=== PATIENT | female | born 1985 | race Caucasian/White ===

== ENCOUNTER 2018-11-21 12:32 | Emergency (ER) | payer SELFPAY ==
[2018-11-21 13:30] VITALS: BP 98/61
--- NOTE | 2018-11-21 13:30 | UC ---
Skin Complaint HPI - HPI Summary HPI Summary: 33 yo female presents accompanied by with concerns for tick bites to right thigh. She tells me that she is visiting from [place] and the house they are staying at has had many people bitten by ticks. Today she noticed two very small red dots on her right thigh and couldn't remove them with tick twisters. She is concerned they are ticks. Not present more than a few hours today. No pain or itch. - History of Current Complaint Chief Complaint: UCSkin Time Seen by Provider: 11/21/18 13:30 Stated Complaint: TICK BITE Hx Obtained From: Patient Onset/Duration: Sudden Onset Current Severity: None Pain Intensity: 0 - Allergy/Home Medications Allergies/Adverse Reactions: Allergies Allergy/AdvReac Type Severity Reaction Status Date / Time Penicillins Allergy Rash Verified 11/21/18 13:31 Home Medications: Home Medications NK [No Home Medications Reported] 11/21/18 [History Confirmed 11/21/18] PMH/Surg Hx/FS Hx/Imm Hx - Additional Past Medical History Additional PMH: None - Surgical History Surgical History: None - Family History Known Family History: Positive: None - Social History Occupation: Employed Full-time Lives: With Family Alcohol Use: None Substance Use Type: None Smoking Status (MU): Never Smoked Tobacco Review of Systems All Other Systems Reviewed And Are Negative: Yes Constitutional: Positive: Negative Skin: Positive: Other - ?Tick bite right thigh Respiratory: Positive: Negative Cardiovascular: Positive: Negative Neurovascular: Positive: Negative Neurological: Positive: Negative Psychological: Positive: Negative Physical Exam - Summary Physical Exam Summary: GENERAL: NAD. WDWN. No pain distress. SKIN: RIGHT thigh: medial aspect with pinpoint vesicle that is bright red in color. NTTP, no surrounding erythema, no tick or insect present. Similar appearing lesion on RLQ abdomen. CHEST: No accessory muscle use. Breathing comfortably and in no distress. CV: Pulses intact. Cap refill <2seconds NEURO: Alert. PSYCH: Age appropriate behavior. Triage Information Reviewed: Yes Vital Signs: Initial Vital Signs Temp 98.6 F 11/21/18 13:28 Pulse 62 11/21/18 13:28 Resp 16 11/21/18 13:28 BP 98/61 11/21/18 13:28 Pulse Ox 100 11/21/18 13:28 Vital Signs Reviewed: Yes Course/Dx - Course Course Of Treatment: Blood blisters. Sterile tweezers were used to scratch the blisters and pin- point amount of blood was expressed. Lesions resolved. Band-aid applied. Pt tolerated well. - Diagnoses Provider Diagnosis: Blood blister Discharge - Sign-Out/Discharge Documenting (check all that apply): Patient Departure All imaging exams completed and their final reports reviewed: No Studies - Discharge Plan Condition: Stable Disposition: HOME Patient Education Materials: Lyme Disease (ED), Tick Bite (ED) Referrals: No Primary Care Phys,NOPCP [Primary Care Provider] - Additional Instructions: If you develop a fever, shortness of breath, chest pain, new or worsening symptoms - please call your PCP or go to the ED immediately. The areas today were not tick bites. I have provided you with some information about tick bites and lyme disease. - Billing Disposition and Condition Condition: STABLE Disposition: Home
== END 2018-11-21 13:46 | disposition home or self-care (01) ==
LOC: UCEAST 12:32
DX: S70.321A Blister (nonthermal), right thigh, initial encounter (principal); X58.XXXA Exposure to other specified factors, initial encounter; Y92.9 Unspecified place or not applicable; Z88.0 Allergy status to penicillin
CPT/HCPCS: 99201; G0463